=== PATIENT | male | born 2000 | race Caucasian/White ===

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

== ENCOUNTER 2018-11-13 22:48 | Emergency (ER) | payer SELFPAY | END 2018-11-13 23:57 | disposition home or self-care (01) | LOC: ERS 22:48 | DX: K59.00 Constipation, unspecified (principal) | CPT/HCPCS: 99283 ==